=== PATIENT | female | born 1955 | race Two or more races ===

== ENCOUNTER 2025-07-30 17:38 | Emergency (ER) | payer OTHER ==
[~2025-07-30] VITALS: Ht 160 cm; Wt 65.8 kg
[2025-07-30] MEDS ORDERED: METOPROLOL SUCC50 MG PO (18:07)
[2025-07-30] MEDS ORDERED: ZESTRIL20 MG PO (18:07)
[2025-07-30] MEDS ORDERED: SYNTHROID75 MCG PO (18:08)
== END 2025-07-30 19:03 | disposition home or self-care (01) ==
LOC: ER 17:38
DX: I10 Essential (primary) hypertension (principal)

== ENCOUNTER 2025-08-03 17:15 | Emergency (ER) | payer OTHER ==
[~2025-08-03] VITALS: Ht 160 cm; Wt 66.2 kg
[~2025-08-03 17:15] MED LIST: METOPROLOL SUCC50 MG PO; SYNTHROID75 MCG PO; ZESTRIL20 MG PO
[2025-08-03] MEDS ORDERED: IBANDRONATE SO150 MG PO (17:29)
[2025-08-03] MEDS ORDERED: TORADOL60 MG IM (17:30)
[2025-08-03] MEDS ORDERED: DEXAMETHASONE SODIUM PHOSPHATE 4 MG/ML VIAL IM ONE (18:30)
[2025-08-03] MEDS ORDERED: ORPHENADRINE CITRATE 30 MG/ML AMPUL IM ONE (18:30)
[2025-08-03] MEDS ORDERED: KETOROLAC TROMETHAMINE 30 MG VIAL IM ONE (18:30)
[2025-08-03] MEDS ORDERED: MEDROLPACK PO (18:35)
[2025-08-03] MEDS ORDERED: MOBIC7.5 MG PO (18:35)
[2025-08-03] MEDS ORDERED: PEPCID AC20 MG PO (18:35)
[2025-08-03] MEDS ORDERED: NORFLEX100MG PO (18:35)
[2025-08-03] MEDS ORDERED: DEXAMETHASONE SODIUM PHOSPHATE 4 MG/ML VIAL ONE (18:57)
[2025-08-03] MEDS ORDERED: KETOROLAC TROMETHAMINE 30 MG VIAL ONE (18:57)
[2025-08-03] MEDS ORDERED: ORPHENADRINE CITRATE 30 MG/ML AMPUL ONE (18:57)
== END 2025-08-03 19:17 | disposition home or self-care (01) ==
LOC: ER 17:15
DX: M54.50 Low back pain, unspecified (principal); M62.838 Other muscle spasm; M62.830 Muscle spasm of back; I10 Essential (primary) hypertension; E03.8 Other specified hypothyroidism
CPT/HCPCS: 96372; 99282; J1100; J1885; J2360

== ENCOUNTER 2025-08-12 14:21 | Emergency (ER) | payer OTHER ==
[~2025-08-12] VITALS: Ht 160 cm; Wt 65.8 kg
[~2025-08-12 14:21] MED LIST changes: +IBANDRONATE SO150 MG PO; +MEDROLPACK PO; +MOBIC7.5 MG PO; +NORFLEX100MG PO; +PEPCID AC20 MG PO; +TORADOL60 MG IM
[2025-08-12] MEDS ORDERED: NEURONTIN300 MG PO (16:06)
[2025-08-12] MEDS ORDERED: NORFLEX100MG PO (16:06)
[2025-08-12] MEDS ORDERED: ORPHENADRINE CITRATE 30 MG/ML AMPUL IM ONE (16:15)
[2025-08-12] MEDS ORDERED: ORPHENADRINE CITRATE 30 MG/ML AMPUL ONE (16:52)
== END 2025-08-12 18:02 | disposition home or self-care (01) ==
LOC: ER 14:22
DX: M54.89 Other dorsalgia (principal); I10 Essential (primary) hypertension; E03.9 Hypothyroidism, unspecified
CPT/HCPCS: 96372; 99282; J2360

== ENCOUNTER 2025-08-23 23:38 | Emergency (ER) | payer OTHER ==
[~2025-08-23] VITALS: Ht 160 cm; Wt 65.8 kg
[~2025-08-23 23:38] MED LIST changes: +NEURONTIN300 MG PO
[2025-08-24] MEDS ORDERED: DICLOFENAC-MIS1 EAC1 PO (00:25)
[2025-08-24] MEDS ORDERED: NIFEDIPINE 10 MG CAPSULE PO ONE (01:00)
[2025-08-24 02:27] LABS: BASO % 0.7 % (0.1-1.2); EOS # 0.45 (0.04-0.54); EOS % 6.3 % (0.7-7.0); LYMPH # 2.30 (1.18-3.74); LYMPH % 32.4 % (19.3-53.1); MEAN PLATELET VOLUME 9.30 fl (9.4-12.4); MONO # 0.70 (0.24-0.82); MONO % 9.9 % (4.7-12.5); NEUT # 3.59 (1.56-6.13); NEUT % 50.6 % (34.0-71.1); RED CELL DISTRIBUTION WIDTH 12.7 % (11.6-14.4)
== END 2025-08-24 | disposition home or self-care (01) ==
LOC: ER 23:39
PROVIDERS: General Practice
DX: I10 Essential (primary) hypertension (principal); R10.20 Pelvic and perineal pain unspecified side; E03.8 Other specified hypothyroidism